=== PATIENT | male | born 1980 | race African-American/Black ===

== ENCOUNTER 2019-03-19 12:11 | Emergency (ER) | payer OTHER ==
[~2019-03-19] VITALS: Ht 185.4 cm; Wt 119.1 kg
[2019-03-19] MEDS ORDERED: LORazepam 2 MG/ML VIAL (J2060) IM STA (12:53)
[2019-03-19] MEDS ORDERED: predniSONE 20 MG TAB PO ONE (13:00)
[2019-03-19] MEDS ORDERED: ONDANSETRON 4 MG ORAL DISINTEGRATING TAB (Q0162 PER 1MG) PO ONE (13:15)
[2019-03-19 13:38] VITALS: BP 136/87
[2019-03-19] MEDS ORDERED: PRED10TA2 PO (13:40)
[2019-03-19] MEDS ORDERED: ROBA500T PO (13:40)
== END 2019-03-19 13:47 | disposition home or self-care (01) ==
LOC: M ED 12:11
DX: M54.16 Radiculopathy, lumbar region (principal); Z72.0 Tobacco use; Z88.0 Allergy status to penicillin; Z88.5 Allergy status to narcotic agent; Z88.8 Allergy status to other drugs, medicaments and biological substances
CPT/HCPCS: 96372; 99283; J2060